=== PATIENT | male | born 1965 | race Caucasian/White ===

== ENCOUNTER 2022-04-02 10:35 | Day surgery (SDC) | payer BC ==
[~2022-04-02] VITALS: Ht 180.3 cm; Wt 109.9 kg
[2022-04-02] MEDS ORDERED: APIX5TAB3 PO (10:59)
[2022-04-02] MEDS ORDERED: LISI10TA27 PO (10:59)
[2022-04-02] MEDS ORDERED: SOTA80TA73 PO (10:59)
[2022-04-02] MEDS ORDERED: ESOM40CA54 PO (10:59)
[2022-04-02] MEDS ORDERED: normal saline 1000ml 1,000 ML IV SCH (11:10)
[2022-04-02] MEDS ORDERED: MIDAZolam 1mg/ml 10ml vial IV ONE (11:10)
[2022-04-02] MEDS ORDERED: fentaNYL/PF 50MCG/1 ML 2ML syringe IV ONE (11:10)
== END 2022-04-02 11:45 | disposition home or self-care (01) ==
LOC: SSTAY O 10:35
PROVIDERS: ATTEND Student in an Organized Health Care Education/Training Program
DX: I48.0 Paroxysmal atrial fibrillation (principal); K21.9 Gastro-esophageal reflux disease without esophagitis; F32.A Depression, unspecified; E78.5 Hyperlipidemia, unspecified; Z86.16 Personal history of COVID-19; Z79.01 Long term (current) use of anticoagulants; Z79.899 Other long term (current) drug therapy
CPT/HCPCS: 92960; 93005; J7030; A4620